=== PATIENT | male | born 1960 | race Caucasian/White ===

== ENCOUNTER 2024-02-12 13:08 | Outpatient (AMB) | payer MEDICAID, SELFPAY ==
--- NOTE | 2024-02-12 13:12 | MHC.OFFVIS ---
Intake Visit Reasons: elevated PSA Intake Note: New Patient is present for Elevated PSA Urology Med: Tadalafil Antibiotic Allergies: None Blood Thinner: None PSA: 07/19/23- 4.83 05/10/23- 6.0 03/08/23- 9.56 Family History: Bladder Cancer: No Prostate Cancer: Yes, patient reports his father had Elevated PSA, and prostate was removed Highway Traffic Control Technician Required: No Accompanied by: Self / Same As Patient Allergies No Known Allergies Allergy (Verified 02/12/24 13:15) HPI Comments Details: Chay is a pleasant male. He is a patient of . He is seen for the following urologic conditions - elevated PSA Discussion regarding options with elevated PSA On exam had AIDA consistent with mildly enlarged prostate and question of chronic prostatitis PSA has shown fall over past six-month previous high over 9 05/26 6.3, 10/23 4.6 Family history father with prostate cancer Discussed options including prostate biopsy, urine DNA test, 4K PSA score, prostate MRI - with potential plan for ultrasound fusion MRI biopsy He would like to try the urine DNA test He understands that there may well be potential for delay in diagnosis of prostate cancer if present but is willing to take this risk PFSH Medical History (Updated 02/12/24 @ 13:29 by Kahlil Bess MD) Elevated PSA Erectile dysfunction Surgical History History of colonoscopy Family History Father Prostate cancer Elevated PSA H/O radical prostatectomy Review of Systems Const Denies chills and Denies fever(s) Card Reports no additional complaints and Denies syncope Resp Denies cough GI Denies abdominal pain and Denies heartburn Reports as per HPI and Denies change in libido Neuro Denies syncope Psych Denies change in libido Endo Denies change in libido Physical Exam Const General: cooperative, healthy appearing, comfortable and no acute distress Orientation/consciousness: patient oriented x3 HEENT Face and sinus: Yes normal facial exam Mouth: moist mucous membranes Neck Neck: Yes normal visual inspection, Yes full ROM and Yes trachea midline Chest Chest palpation & inspection: normal inspection of the chest Resp Effort & Inspection: normal respiratory effort, able to speak in complete sentences and no respiratory distress GI Inspection: Yes normal to inspection Rectal Exam - Male: Yes normal sphincter tone and Yes prostate normal Male General Exam: Yes normal external exam Penis: normal penis and circumcised Meatus: meatus normal Scrotum: scrotum normal Testes: Testes normal Back/Spine/Pelvis Cervical Spine: normal cervical lordosis Thoracic/Lumbar Spine: thoracic and lumbar spine normal to inspection Skin General skin exam: no rashes or lesions noted Neuro General: patient oriented x3, gait normal, tone normal and moves all extremities Extrem General: Yes normal to inspection and Yes capillary refill normal Assessment & Plan Assessment & Plan (1) Elevated PSA: Code(s): R97.20 - Elevated prostate specific antigen [PSA] Category: Medical Plan Uro DX Three-month follow-up PSA tele Orders: Orders PSA,Total (Free>4and<10) 3 Months R97.20 - Elevated prostate specific antigen [PSA] Patient Instructions: Imaging studies, laboratory and physical exam results were discussed and reviewed in detail. No major barriers to patient understanding were identified. An opportunity to ask questions regarding the treatment plan was provided. All questions were answered. The patient expressed understanding and agreement with the above treatment plan. The patient is aware they should contact our office by phone for worsening of their current condition or the appearance of new urologic symptoms. Compliance is encouraged with any medications and followup testing that is ordered. It is a privilege to participate in the urologic care of your patient. If you have any questions or concerns regarding treatment for the above conditions, or other urologic issues, please do not hesitate to contact me. The office telephone contact is [phone]. This note is constructed using voice recognition software. While every effort has been made to ensure accuracy laser specialist errors may have been included. Yours sincerely, Dr Kahlil Bess MD, [facility] - Urology Providers of Expert, Compassionate Care for the Genitourinary System Coding Level of Care Code New Pt Level 4 (58578) Diagnoses Elevated PSA R97.20
== END 2024-02-12 13:46 | disposition home or self-care (01) ==
PROVIDERS: PCP Internal Medicine; Visit Provider Urology
DX: R97.20 Elevated prostate specific antigen [PSA] (principal)
CPT/HCPCS: 99204

== ENCOUNTER → 2024-02-12 13:08 | Outpatient (BNVA) | payer MEDICAID, SELFPAY | PROVIDERS: PCP Internal Medicine; Visit Provider Urology | DX: R97.20 Elevated prostate specific antigen [PSA] (principal) | CPT/HCPCS: 99202 ==

== ENCOUNTER 2024-05-26 08:20 | Outpatient (REF) | payer MEDICAID, SELFPAY ==
[2024-05-26 10:14] LABS: PSA,Total (Free>4and<10) 7.86 ng/mL (0.00-4.00)
[2024-05-28 12:04] LABS: Free Prostate Spec Ag 0.9 ng/mL; Percent Free Prostate Spec Ag 12 % (calc) (>25); Prostate Specific Ag Total 7.7 ng/mL (< OR = 4.0)
== END 2024-05-26 08:21 | disposition home or self-care (01) ==
LOC: HO.LAB 08:20
PROVIDERS: PCP Internal Medicine; Visit Provider Urology
DX: R97.20 Elevated prostate specific antigen [PSA] (principal)
CPT/HCPCS: 36415; 84153; 84154

== ENCOUNTER 2024-07-03 09:45 | Outpatient (AMB) | payer MEDICAID, SELFPAY ==
--- NOTE | 2024-07-03 09:46 | MHC.OFFVIS ---
Intake Visit Reasons: PSA follow up Intake Note: Patient is present for PSA Urology Medication:TADALAFIL Antibiotic Allergy:NONE Blood Thinner:NONE Dental Assistant Medical Assistant Required: No Allergies No Known Allergies Allergy (Verified 07/03/24 09:47) HPI Comments Details: Chay is a pleasant male. He is a patient of . He is seen for the following urologic conditions - elevated PSA Telemedicine Evaluation 15 min Consultation [employer] Kost[employer] Video Continued persistent rise in PSA. Recommend prostate biopsy Elevated PSA Probable chronic prostatitis PSA has shown fall over past six-month previous high over 9 05/26 6.3, 10/23 4.6, 05/27 7.7 12% Family history father with prostate cancer Uro DX - score 44 - 35% chance prostate cancer PFSH Medical History (Updated 02/12/24 @ 13:29 by Kahlil Bess MD) Elevated PSA Erectile dysfunction Surgical History History of colonoscopy Family History Father Prostate cancer Elevated PSA H/O radical prostatectomy Review of Systems Const All systems reviewed & are unremarkable except as noted in HPI and below Reports no additional complaints Resp Reports no additional complaints GI Reports no additional complaints Reports as per HPI Musc Reports no additional complaints Physical Exam Telemedicine evaluation Appropriate responses Regular breathing rate and rhythm HEENT Head: Yes normal to inspection Ears: hearing grossly normal bilaterally Eyes General: appearance normal, both eyes and all related structures Neck Neck: Yes normal visual inspection Chest Chest palpation & inspection: normal inspection of the chest Resp Effort & Inspection: normal respiratory effort and able to speak in complete sentences Telehealth Telehealth Telehealth Platform: [employer] Location of provider rendering services: practice address Location of patient: address on file Patient Identification confirmed using: Name, : Yes Telehealth method: video Patient verbally consented to treatment: Yes Patient verbally consented to billing insurance company: Yes Patient informed of any privacy concerns related to visit: Yes Minutes spent on Phone/Video with Pt.: 15 Assessment & Plan Assessment & Plan (1) Elevated PSA: Code(s): R97.20 - Elevated prostate specific antigen [PSA] Category: Medical Plan Recommend prostate biopsy Patient Instructions: This note is constructed using voice recognition software. While every effort has been made to ensure accuracy duplicating machine operator errors may have been included. Imaging studies, laboratory and physical exam results were discussed and reviewed in detail. No major barriers to patient understanding were identified. An opportunity to ask questions regarding the treatment plan was provided. All questions were answered. The patient expressed understanding and agreement with the above treatment plan. The patient is aware they should contact our office by phone for worsening of their current condition or the appearance of new urologic symptoms. Compliance is encouraged with any medications and followup testing that is ordered. It is a privilege to participate in the urologic care of your patient. If you have any questions or concerns regarding treatment for the above conditions, or other urologic issues, please do not hesitate to contact me. The office telephone contact is [phone]. Sincerely, Dr Kahlil Bess MD, [facility] - Urology Compassionate Specialist Care for the Genitourinary System Coding Level of Care Code Tele Est Pt Level 4 (04493) Diagnoses Elevated PSA R97.20
== END 2024-07-03 10:56 | disposition home or self-care (01) ==
LOC: HO.HUSH 09:45
PROVIDERS: PCP Internal Medicine; Visit Provider Urology
DX: R97.20 Elevated prostate specific antigen [PSA] (principal)
CPT/HCPCS: 99214

== ENCOUNTER → 2024-07-03 09:45 | Outpatient (BNVA) | payer MEDICAID, SELFPAY | PROVIDERS: PCP Internal Medicine; Visit Provider Urology ==

== ENCOUNTER 2024-08-21 07:58 | Outpatient (REF) | payer MEDICARE, SELFPAY ==
[2024-08-21] MEDS: Lidocaine HCl 1 % MPF 5 ML VIAL 15 ML SUBCUT (08:44)
--- NOTE | 2024-08-21 08:48 | P.OP_ITS ---
Operative Note Operative Note Date of Service: 08/21/24 Narrative: Preoperative diagnosis: Elevated PSA Postoperative diagnosis: Elevated PSA Procedure: 1. transrectal ultrasound measurement of prostate 2. transrectal ultrasound-guided pudendal nerve block 3. transrectal ultrasound-guided prostate biopsy 12 core Surgeon: Dr. Kahlil Bess Anesthetic: 10cc 1% lidocaine Indications for procedure: Elevated PSA Counselling: Technical aspects, risks and benefits of proposed procedure were discussed in full. All questions have been answered, written consent has been obtained and patient agrees to proceed. Procedure: The patient was brought into the procedure area and placed in a left lateral decubitus position. Patient identity confirmed. Perioperative antibiotics confirmed. Safety pause time out performed. AIDA was performed to dilate rectal sphincter Iodine 10cc with 60 cc gel was placed per rectum to reduce infection risk using a catheter tip syringe. 8 Hz Kylah rectal end-fire ultrasound probe was placed transrectally without difficulty. The prostate was visualized. Seminal vesicles were normal. Prostate margins were clearly demarcated. Bladder was seen superiorly. No cystic structures were noted No calcifications were noted at the surgical margin The prostate was otherwise heterogenous in nature. Ratio of transition zone to peripheral zone favored peripheral zone. There did appear to be a discrete small whorl on the patient's right side and this was targeted as part of biopsy process. The prostate was measured in 3 dimensions Prostatic Width: 5.3 cm Prostatic Height: 3.6 cm Urethral Length: 3.8 cm Total volume equals : 40 ml An ultrasound-guided pudendal nerve block was performed using a 22 gauge spinal needle in the sagittal plane. 4 cc of 1% lidocaine placed at the junction of each seminal vesicle and 2 cc placed at the apex of the prostate. A 12 core biopsy was performed with 6 cores each side using an 18 gauge prostate biopsy gun. Two cores each were taken at the prostate apex, mid and base on each side. Cores were spaced between lateral and medial aspects. Each core was examined as placed on specimen foam as part of supervisor quality control to ensure a minimum 1 cm of length and minimal discontinuity. He tolerated the procedure well with minimal rectal bleeding. Blood pressure remained stable following procedure. He was able to ambulate to bathroom after 5 minutes. Printed instructions regarding antibiotic use and common adverse events from the procedure such as low-grade temperature, potential infection and bleeding were given. He understands to call the office or go to an emergency room should any of these events arise. Pathology: 12 core prostate biopsy. CPT code 75791: Transrectal ultrasound; this is a diagnostic test for evaluation of the prostate and surrounding structures, looking for abnormalities or suspicious areas worrisome for cancer CPT code 76182: Biopsy, prostate; needle or punch, single or multiple, any approach CPT code 16362: Ultrasonic guidance for needle placement (eg, biopsy, aspiration, injection, localization device), imaging supervision and interpretation
== END 2024-08-21 07:59 | disposition home or self-care (01) ==
LOC: HO.US 07:58
PROVIDERS: PCP Internal Medicine; Visit Provider Urology
DX: R97.20 Elevated prostate specific antigen [PSA] (principal)
CPT/HCPCS: 55700; 76942; 88305; J2003

== ENCOUNTER → 2024-08-21 07:58 | Outpatient (BNV) | payer MEDICARE, SELFPAY | PROVIDERS: PCP Internal Medicine; Visit Provider Urology | DX: R97.20 Elevated prostate specific antigen [PSA] (principal) | CPT/HCPCS: 55700; 76872; 76942 ==

== ENCOUNTER 2024-09-03 08:36 | Outpatient (AMB) | payer MEDICARE, SELFPAY ==
--- NOTE | 2024-09-03 08:36 | MHC.OFFVIS ---
Intake Visit Reasons: Prostate biopsy results Intake Note: Patient is present for PROSTATE BIOPSY RESULTS Urology Medication:TADALAFIL Antibiotic Allergy:NONE Blood Thinner:NONE Coding Machine Operator Required: No Allergies No Known Allergies Allergy (Verified 09/03/24 08:37) HPI Comments Details: Chay is a pleasant male. He is a patient of . He is seen for the following urologic conditions - prostate cancer Telemedicine Evaluation 15 min Consultation [employer] Kostas Video Discussed biopsy - well tolerated minimal discomfort Discussed biopsy result Low volume, high-grade prostate cancer likely localized Plan PET-CT with prostate MRI Follow-up office for discussion of results and intervention planning 4 weeks Prostate cancer - grade group 4/5 05/26 6.3, 10/23 4.6, 05/27 7.7 12% Family history father with prostate cancer - 80 yr Uro DX - score 44 - 35% chance prostate cancer Histologic type: Acinar adenocarcinoma Histologic grade: - or right side Antonio score: 4+4=8 (I, K), 4+5=9 (J, L) - % of pattern 4: 100% (I and K); 70% (J); 60% (L) % of pattern 5: 30% (J); 40% (L) RML 33%, RMM 46%, RAL 45%, BENNY 50% Tumor quantitation: Number cores positive: 4 Total number of cores: 12 Periprostatic fat inv.: Not identified Seminal vesicle inv.: Not identified Perineural inv.: Present LVI: Not identified [facility] Medical History (Updated 09/03/24 @ 08:59 by Kahlil Bess MD) Elevated PSA Erectile dysfunction Surgical History History of colonoscopy Family History Father Prostate cancer Elevated PSA H/O radical prostatectomy Review of Systems Const All systems reviewed & are unremarkable except as noted in HPI and below Reports no additional complaints Resp Reports no additional complaints GI Reports no additional complaints Reports as per HPI Musc Reports no additional complaints Physical Exam Telemedicine evaluation Appropriate responses Regular breathing rate and rhythm HEENT Head: Yes normal to inspection Ears: hearing grossly normal bilaterally Eyes General: appearance normal, both eyes and all related structures Neck Neck: Yes normal visual inspection Chest Chest palpation & inspection: normal inspection of the chest Resp Effort & Inspection: normal respiratory effort and able to speak in complete sentences Telehealth Telehealth Location of provider rendering services: practice address Location of patient: address on file Patient Identification confirmed using: Name, : Yes Telehealth method: voice only Patient verbally consented to treatment: Yes Patient verbally consented to billing insurance company: Yes Patient informed of any privacy concerns related to visit: Yes Assessment & Plan Assessment & Plan (1) Hormone sensitive prostate cancer: Code(s): C61 - Malignant neoplasm of prostate; Z19.1 - Hormone sensitive malignancy status Category: Medical Plan Complete staging Orders: Orders MR Prostate wo/w con 2 Weeks C61 - Malignant neoplasm of prostate, Z19.1 - Hormone sensitive malignancy status PET CT fusion skull to thigh Today C61 - Malignant neoplasm of prostate Patient Instructions: This note is constructed using voice recognition software. While every effort has been made to ensure accuracy stretcher leveler operator errors may have been included. Imaging studies, laboratory and physical exam results were discussed and reviewed in detail. No major barriers to patient understanding were identified. An opportunity to ask questions regarding the treatment plan was provided. All questions were answered. The patient expressed understanding and agreement with the above treatment plan. The patient is aware they should contact our office by phone for worsening of their current condition or the appearance of new urologic symptoms. Compliance is encouraged with any medications and followup testing that is ordered. It is a privilege to participate in the urologic care of your patient. If you have any questions or concerns regarding treatment for the above conditions, or other urologic issues, please do not hesitate to contact me. The office telephone contact is [phone]. Sincerely, Dr Kahlil Bess MD, [facility] - Urology Compassionate Specialist Care for the Genitourinary System Coding Level of Care Code Tele Est Pt Level 4 (29879) Diagnoses Hormone sensitive prostate cancer C61; Z19.1
== END 2024-09-03 09:06 | disposition home or self-care (01) ==
LOC: HO.HUSH 08:36
PROVIDERS: PCP Internal Medicine; Visit Provider Urology
DX: C61 Malignant neoplasm of prostate (principal); Z19.1 Hormone sensitive malignancy status
CPT/HCPCS: 99214

== ENCOUNTER → 2024-09-03 08:36 | Outpatient (BNVA) | payer MEDICARE, SELFPAY | PROVIDERS: PCP Internal Medicine; Visit Provider Urology | DX: Z13.89 Encounter for screening for other disorder (principal) ==

== ENCOUNTER → 2024-09-18 08:49 | Outpatient (BNV) | payer MEDICARE, OTHER, SELFPAY | PROVIDERS: Visit Provider Radiology Diagnostic Radiology | DX: R97.20 Elevated prostate specific antigen [PSA] (principal) | CPT/HCPCS: 72197 ==

== ENCOUNTER 2024-09-18 08:55 | Outpatient (REF) | payer MEDICARE, OTHER, SELFPAY ==
--- NOTE | ~2024-09-18 | MR_ITS ---
EXAMINATION: MRI prostate without and with contrast. HISTORY: Elevated PSA TECHNIQUE: 1.5T body coil survey of the pelvis was performed. Phase array coil imaging of the prostate was performed in multiplanar high resolution axial, coronal, sagittal fast spin echo T2 and axial T1 weighted imaging sequences. Axial diffusion imaging at intermediate and high field performed with ADC mapping. Next, 8 mL Gadavist was given by intravenous infusion, and dynamic axial imaging performed. COMPARISON: There are no prior studies for comparison. CLINICAL DATA: Most recent PSA: 7.7ng/mL PSA Density: 0.07ng/mL squared Prostate Biopsy: 2 weeks ago. Positive cancer. FINDINGS: Prostate size: 3.8 x 5.0 x 2.7cm. Calculated prostate volume is 98 mL. T1: Peripheral zone: Increased signal in the bilateral peripheral zone slightly more on the left. Suggestive of hemorrhage likely from recent biopsy. Transitional Zone: Heterogeneous but no focal increased T1 signal. T2: Increased T2 signal bilateral peripheral zone and slightly heterogenous T2 signal with corresponding increased T2 signal in the left peripheral zone on ADC map. There is hemorrhage in the left peripheral zone on T1. Nonspecific heterogenous signal in the transitional zone as well PI-RADS: 1 Diffusion: Increased bilateral diffusion peripheral zone and bilateral transition zone. PI-RADS: 1 DEI: No enhancement seen in the peripheral zone. Nonspecific mild enhancement in bilateral transitional and bilateral peripheral zones PI-RADS: 1. Seminal Vesicles/Ejaculatory Ducts: Symmetric and normal in signal and caliber. Pelvic Lymph Nodes: No obturator or internal iliac lymph nodes meeting size criteria for adenopathy. Marrow Signal: Normal marrow signal and enhancement without focal lesion identified. MR/MR Prostate wo/w con IMPRESSION: No discrete or focal lesion seen in the peripheral zone. There is hemorrhage visualized in left and minimal in right peripheral zone. PI-RADS 1: Very low (clinically significant cancer is highly unlikely to be present) PI-RADS Assessment Categories PI-RADS 1: Very low (clinically significant cancer is highly unlikely to be present) PI-RADS 2: Low (clinically significant cancer is unlikely to be present) PI-RADS 3: Intermediate (the presence of clinically significant cancer is equivocal) PI-RADS 4: High (clinically significant cancer is likely to be present) PI-RADS 5: Very high (clinically significant cancer is highly likely to be present) [employer]. MR Prostate Imaging Reporting and Data System version 2.1. [email or web address] Electronically signed by: Servando Arana MD 09/25/2024 07:37 AM EDT
[2024-09-18] MEDS: gadobutroL 10 ML VIAL IVPUSH (10:40)
== END 2024-09-18 08:56 | disposition home or self-care (01) ==
LOC: HO.MRI 08:55
PROVIDERS: Visit Provider Urology
DX: C61 Malignant neoplasm of prostate (principal); Z19.1 Hormone sensitive malignancy status
CPT/HCPCS: 72197; A9585

== ENCOUNTER → 2024-10-10 15:11 | Outpatient (AMB) | payer MEDICARE, OTHER, SELFPAY ==
--- NOTE | 2024-10-10 15:20 | MHC.OFFVIS ---
Intake Visit Reasons: MRI/PET CT f/u Intake Note: Patient is present for pPca Urology Medication:TADALAFIL Antibiotic Allergy:NONE Blood Thinner:NONE Imaging done : 10/02/24 Hydroelectric Machinery Mechanic Helper Required: No Accompanied by: Self / Same As Patient Allergies No Known Allergies Allergy (Verified 10/10/24 15:22) [facility] Medical History (Updated 09/03/24 @ 08:59 by Kahlil Bess MD) Elevated PSA Erectile dysfunction Surgical History History of colonoscopy Family History Father Prostate cancer Elevated PSA H/O radical prostatectomy Coding
== END ==
LOC: HO.HUSH 15:12
PROVIDERS: PCP Internal Medicine; Visit Provider Urology
DX: Z13.9 Encounter for screening, unspecified (principal)

== ENCOUNTER → 2024-10-10 15:11 | Outpatient (BNVA) | payer MEDICARE, OTHER, SELFPAY | PROVIDERS: PCP Internal Medicine; Visit Provider Urology | DX: C61 Malignant neoplasm of prostate (principal); Z19.1 Hormone sensitive malignancy status | CPT/HCPCS: 81003; 99212 ==

== ENCOUNTER 2024-11-07 14:52 | Outpatient (AMB) | payer MEDICARE, OTHER, SELFPAY ==
--- NOTE | 2024-11-07 14:53 | AM.OFFVISNUR ---
Intake Visit Reasons: GnRH Allergies No Known Allergies Allergy (Verified 10/10/24 15:22) Office Meds Eligard (6 month) 45 mg (6 month) subcutaneous syringe Performing Provider: Kahlil Bess MD [place] [facility] Administered by: Javid Hdez LPN on 11/07/24 14:53 Dose Route Admin Location Dispensed Lot Number Expiration Date [facility] Machine Former 45 mg subcut right arm 45 mg [id number] 12/01/25 04159-606-29 Asseta. Total Dispensed Waste 45 mg 0 % Assessment & Plan Assessment & Plan Orders: Orders AMB Leuprolide Injection - Practice Supplied Today C61 - Malignant neoplasm of prostate, Z19.1 - Hormone sensitive malignancy status Coding
== END 2024-11-07 15:03 | disposition home or self-care (01) ==
PROVIDERS: PCP Internal Medicine; Visit Provider Urology
DX: C61 Malignant neoplasm of prostate (principal); Z19.1 Hormone sensitive malignancy status

== ENCOUNTER → 2024-11-07 14:52 | Outpatient (BNVA) | payer MEDICARE, SELFPAY | PROVIDERS: PCP Internal Medicine; Visit Provider Urology | DX: Z51.11 Encounter for antineoplastic chemotherapy (principal); C61 Malignant neoplasm of prostate; Z19.1 Hormone sensitive malignancy status; Z79.818 Long term (current) use of other agents affecting estrogen receptors and estrogen levels | CPT/HCPCS: 96402; J9217 ==

== ENCOUNTER 2024-12-17 09:56 | Day surgery (SDC) | payer MEDICARE, OTHER, SELFPAY ==
--- OUTSIDE RECORDS SUMMARY | 2024-12-05 12:49 | XMS_ITS | Encounter Summary ---
Author Organization [facility] Address [address] [place] [address] Care Team Providers Care Watch Commander Name Role Phone Unavailable Primary Care Provider Unavailabl e Encounter Details Date Type Department Care Team (Late st Contact Info) Description 12/03/2024 Telephone Hematology and Oncology - [address] [phone] Lavon Oliva MD [address] [place] [address] [phone] Social History Tobacco Use Types Packs/Day Years Used Date Smoking Tobacco: Never Assessed Sex and Gender Information Value Date Recorded Sex Assigned at Not on file Legal Sex Male 12:03 PM EDT Gender Identity Not on file Sexual Orientation Not on file documented as of this encounter Plan of Treatment Upcoming Encounters Date Type Department Care Team (Late st Contact Info) Description 12/30/2024 9:30 AM EDT Appointment Radiation Oncology - [address] [phone] Alfredo Todd MD [address] [place] [address] [phone] documented as of this encounter Visit Diagnoses Not on filedocumented in this encounter
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
--- OUTSIDE RECORDS SUMMARY | 2024-12-05 12:49 | XMS_ITS ---
Author Name [facility] Organization Unknown Problems Problem Status Onset Date Problem Type Date of Resoluti on Source Prostate cancer ([facility] V24, [facility] V28) active 2024-11-18 [address] [id number]
--- OUTSIDE RECORDS SUMMARY | 2024-12-05 12:49 | XMS_ITS | Clinical Summary ---
Author Organization [facility] Address [address] [place], [place] [phone] Phone Care Team Providers Care Route Sales Representative Name Role Phone Unavailable Primary Care Provider Unavailabl e Active Problems Problem Noted Date Diagnosed Date Prostate cancer (CMS/[facility] V24, CMS/[facility] V28) 11/18 Cancer Staging:Clinical stage from 11/18/2024:Stage IIIC(cT1c, cN0, cM0, PSA: 7.7, Grade Group: 5) - Signed by Alfredo Todd MD on 11/18/2024 Encounters Date Type Department Care Team Description 12/03/2024 Telephone Hematology and Oncology - [address] [phone] Lavon Oliva MD 11/21/2024 Telephone Hematology and Oncology [address] [phone] Luz Mitchell from Last 3 Months Social History Tobacco Use Types Packs/Day Years Used Date Smoking Tobacco: Never Assessed Sex and Gender Information Value Date Recorded Sex Assigned at Not on file Legal Sex Male 12:03 PM EDT Gender Identity Not on file Sexual Orientation Not on file Plan of Treatment Upcoming Encounters Date Type Department Care Team (Late st Contact Info) Description 12/30/2024 9:30 AM EDT Appointment Radiation Oncology - [address] [phone] Alfredo Todd MD [address] [place] [phone] Health Maintenance Due Date Last Done Comments COVID-19 Vaccine (#1) 1964 DTaP,Tdap,and Td Vaccines (1 - Tdap) 1978 Pneumococcal Vaccine: 50+ Ye ars (1 of 2 - PCV) 1978 Zoster Vaccines (1 of 2) 1978 RSV Immunization Adult Patie nts (1 - Risk 60-74 years 1-dose series) 2019 Depression Screening 04/02/2024 Abdominal Aortic Aneurysm (A AA) Screen 11/18/2024 Cholesterol Screening (Lipid Panel) 11/18/2024 Colorectal Cancer Screening: Colonoscopy 11/18/2024 Falls Risk Assessment 11/18/2024 Hepatitis C Screening 11/18/2024 Medicare Annual Wellness Visit 11/18/2024 Social Influencers of Health Screening 11/18/2024 Influenza Vaccine (#1) 2024 HIB Vaccines Aged Out No longer eligi ble based on patient's age to complete this topic HPV Vaccines Aged Out No longer eligi ble based on patient's age to complete this topic Hepatitis A Vaccines Aged Out No long er eligible based on patient's age to complete this topic Hepatitis B Vaccines Aged Out No long er eligible based on patient's age to complete this topic IPV Vaccines Aged Out No longer eligi ble based on patient's age to complete this topic MMR Vaccines Aged Out No longer eligi ble based on patient's age to complete this topic Meningococcal ACWY Vaccine Aged Out N o longer eligible based on patient's age to complete this topic Meningococcal B Vaccine Aged Out No l onger eligible based on patient's age to complete this topic RSV Immunization Patients Un alona 20 months Aged Out No longer eligible b ased on patient's age to complete this topic Varicella Vaccines Aged Out No longer eligible based on patient's age to complete this topic Insurance MEDICARE [facility]
--- NOTE | 2024-12-16 10:00 | P.CONAN_ITS ---
Documented by User: Dia Black NP 12/16/24 10:00 HPI - Anesthesia Eval Consult details Narrative: 64yo M for Space OAR with Visacoil PMFSH Active Problems Active Problems: All Active Problems Hormone sensitive prostate cancer (Acute) Elevated PSA (Acute) Past Medical History Medical History Hormone sensitive prostate cancer Elevated PSA Erectile dysfunction Family History Family History Father Prostate cancer Elevated PSA H/O radical prostatectomy Surgical History Surgical History Hx of prostate biopsy History of colonoscopy Social History Social History Are you a primary acute care physical therapist to a significant other at home: No Do you presently have visiting nurse or other home services: No Patient Tobacco Use Status: Former Tobacco user Use of substances other than those prescribed or required for medical reasons: No Have you been hit, kicked, punched, or otherwise hurt by someone within the past year? If so, by whom?: No Are you DNR?: No Advance Directives: No Advance Directives Information Provided: Yes Poor oral hygiene: No Meds Allergies Allergy/AdvReac Type Severity Reaction Status Date / Time No Known Allergies Allergy Verified 12/17/24 10:24 Home Medications ?Medication ?Instructions ?Recorded ?Confirmed ?Last Taken ?Type sildenafil 100 mg tablet 100 mg PO DAILY PRN Erectile 12/15/24 12/15/24 Unknown History Dysfunction Exam Height,Weight and Vital Signs: Height 5 ft 7.72 in Assessment and Plan Assessment Anesthesia Assessment: Chart Reviewed Documented by User: Beth Lou MD 12/17/24 11:04 PMFSH Past Medical History Medical History Hormone sensitive prostate cancer Elevated PSA Erectile dysfunction Family History Family History Father Prostate cancer Elevated PSA H/O radical prostatectomy Family history of problems with anesthesia: No Surgical History Surgical History Hx of prostate biopsy History of colonoscopy History of Problems with Anesthesia: No Social History Social History Are you a primary acute care physical therapist to a significant other at home: No Do you presently have visiting nurse or other home services: No Patient Tobacco Use Status: Former Tobacco user Use of substances other than those prescribed or required for medical reasons: No Have you been hit, kicked, punched, or otherwise hurt by someone within the past year? If so, by whom?: No Are you DNR?: No Advance Directives: No Advance Directives Information Provided: Yes Poor oral hygiene: No Meds Allergies Allergy/AdvReac Type Severity Reaction Status Date / Time No Known Allergies Allergy Verified 12/17/24 10:24 Home Medications ?Medication ?Instructions ?Recorded ?Confirmed ?Last Taken ?Type sildenafil 100 mg tablet 100 mg PO DAILY PRN Erectile 12/15/24 12/15/24 Unknown History Dysfunction Exam Airway Mallampati Class: II TM Dist: >3cm Neck ROM: Limited Heart: rrr Lungs: cta Assessment and Plan Assessment Anesthesia Assessment: Anesthesia Plan Discussed Final Anesthetic Review Family History of Problems with Anesthesia: No History of Problems with Anesthesia: No NPO: Yes ASA Class: II Final Preanesthetic Review: No Changes in Pt Med Stat, Meds/Allgs Chart Reviewed, Consent Obtained/Reviewed and Anes Risks/Benef Reviewed Patient Risk: Intermediate Procedure Risk: Low Anesthetic Plan Anesthetic Plan: GA and MAC: Disposition: Standard PACU
[2024-12-17] MEDS: Lactated Ringers 1,000 ML 100 ML IVCONT (10:05)
[2024-12-17] MEDS: Opium/Belladonna 60/16.2 mg SUPP.RECT 1 SUPP PR (10:05)
[2024-12-17 10:25] VITALS: BP 132/77; PULSE 62; RESP 14; TEMP 37; O2SAT 97; BMI 25.1
--- NOTE | 2024-12-17 11:06 | MHC.SHP ---
Pre-Procedural Eval Section A - 24 Hr Update-Section A only Date of Service: 12/17/24 The patient is an INPATIENT: No Changes since office visit: No Cold of Flu in the past 2 weeks, No New Medical Problems, No Changes in Medication and No Patient answered all questions The patient has been examined within 24 hours of the surgical procedure. The History & Physical has been completed within 30 days and I have reviewed it.: Yes Section B - Complete if H&P > 30 days Chief Complaint: Malignant neoplasm of prostate Details of Present Illness: spaceoar with markers Allergies: Allergies Allergy/AdvReac Type Severity Reaction Status Date / Time No Known Allergies Allergy Verified 12/17/24 10:24 Plan I have reviewed the history and physical and performed a pertinent physical examination on my patient. No changes have occurred unless specified. Time Spent With Patient Time: Total time managing care of this patient today ____ minutes.
[2024-12-17 11:45] VITALS: BP 154/85; PULSE 60; RESP 12; TEMP 36.1; O2SAT 97
[2024-12-17 11:50] VITALS: BP 143/86; PULSE 60; RESP 12; O2SAT 95
[2024-12-17 11:55] VITALS: BP 144/82; PULSE 69; RESP 12; O2SAT 95
[2024-12-17 12:00] VITALS: BP 141/82; PULSE 66; RESP 12; O2SAT 95
[2024-12-17 12:07] VITALS: BP 136/83; PULSE 65; RESP 14; TEMP 36.1; O2SAT 97
--- NOTE | 2024-12-17 12:48 | W.PM.OPN ---
Operative Note Operative Note Date of Service: 12/17/24 Narrative: Preoperative diagnosis: Prostate cancer Postoperative diagnosis: Prostate cancer Procedure: 1. Transrectal ultrasound-guided perineal visicoil marker seed placement 2. Transrectal ultrasound-guided perineal SpaceOAR gel placement Surgeon: Dr. Kahlil Bess Anesthetic: Sedation Indications for procedure: Prostate Cancer Procedure: After informed consent was verified, the patient was brought into the operating room and anesthesia was performed per protocol. The patient was placed in a modified dorsal lithotomy position. Anus was dilated with a finger. Gel was placed per rectum. Ultrasound probe was placed per rectum. The prostate was visualized in sagittal and transverse dimensions. Local anesthetic was infiltrated in the perineal area using 10 cc of lidocaine Visicoil seed markers were placed in a transperineal fashion using ultrasound guidance 1 on the right toward mid gland. 1 on the left at mid gland. Good deployment confirmed with ultrasound. The purpose is for target triangulation. The 2nd part of the procedure was placement of SpaceOAR gel to allow consolidation for radiation delivery. The kit was prepared on the backtable with assembly of the 2 part solution and syringe delivery system per kit instructions. The delivery needle was advanced bevel down in the midline under ultrasound guidance to the apex of the prostate. It was advanced in the plane the prostate from the rectum to the midpoint of the prostate. Location was reviewed using sagittal and transverse imaging. At the midpoint of the prostate 1 cc of saline was placed to confirm needle position. Further injection saline was placed to confirm spread toward the base of the prostate. Position was confirmed with sagittal and transverse imaging. The needle was confirmed to be free from tenting of the rectum. With the needle in the confirmed position 10 cc of gel mixture was injected. This was performed over a target time of 15-20 seconds to allow for adequate spread.. Good separation was seen of the rectum from the prostate space running in the midline from the base toward the apex of the prostate. Following completion of the procedure the probe was removed from the rectum. He tolerated the procedure well. He was extubated in the operating room and transferred in stable condition to the recovery area. Pathology none Drains none
== END 2024-12-17 13:02 | disposition home or self-care (01) ==
PROVIDERS: Visit Provider Urology
PROC: (CPT 55874; principal; 2024-12-17 11:00)
DX: C61 Malignant neoplasm of prostate (principal); Z19.1 Hormone sensitive malignancy status; Z80.42 Family history of malignant neoplasm of prostate; N52.9 Male erectile dysfunction, unspecified; R97.20 Elevated prostate specific antigen [PSA]; Z79.899 Other long term (current) drug therapy
CPT/HCPCS: 55874; 55876; A4648; J0131; J1100; J1885; J2003; J2250; J2405; J2704; J2795; J3010

== ENCOUNTER → 2024-12-17 09:56 | Outpatient (BNV) | payer MEDICARE, OTHER, SELFPAY | PROVIDERS: Visit Provider Urology | DX: C61 Malignant neoplasm of prostate (principal) | CPT/HCPCS: 55874; 55876 ==

== ENCOUNTER 2025-03-17 14:02 | Outpatient (AMB) | payer MEDICARE, SELFPAY ==
--- NOTE | 2025-03-17 14:15 | A.OFFVIS_ITS ---
Intake Visit Reasons: Prostae cancer, Space OAR follow up SET NO UA Intake Note: Patient is present for Post Op Urology Medication:Sildenafil Antibiotic Allergy:NONE Blood Thinner:NONE Imaging done : 10/02/24 Procedure:12/17/24 Manager Employee Relations Required: No Accompanied by: Self / Same As Patient Allergies No Known Allergies Allergy (Verified 03/17/25 14:16) HPI Comments Details: Chay is a pleasant male. He is a patient of . He is seen for the following urologic conditions - prostate cancer Follow-up after CyberKnife therapy Good response. Had some urinary urgency responded to Flomax. Has now come off Three-month follow-up [facility] lab work Prostate cancer - grade group 4/5 SpaceOAR placement 12/25 01/24 CyberKnife therapy 5 fraction 725 per fraction [address] Peyton Rawls [facility] 11/24 05/26 6.3, 10/23 4.6, 05/27 7.7 12% Prostate MRI - 100 g prostate. No discrete lesions seen within prostate. Neg ative bone marrow signal. Negative nodes PET-CT - strongly avid prostate, negative nodes Family history father with prostate cancer - 80 yr Uro DX - score 44 - 35% chance prostate cancer Histologic type: Acinar adenocarcinoma Histologic grade: - or right side York score: 4+4=8 (I, K), 4+5=9 (J, L) - % of pattern 4: 100% (I and K); 70% (J); 60% (L) % of pattern 5: 30% (J); 40% (L) RML 33%, RMM 46%, RAL 45%, BENNY 50% Tumor quantitation: Number cores positive: 4 Total number of cores: 12 Periprostatic fat inv.: Not identified Seminal vesicle inv.: Not identified Perineural inv.: Present LVI: Not identified PFSH Medical History Hormone sensitive prostate cancer Elevated PSA Erectile dysfunction Surgical History Hx of prostate biopsy History of colonoscopy Family History Father Prostate cancer Elevated PSA H/O radical prostatectomy Social History Are you a primary home care companion to a significant other at home: No Do you presently have visiting nurse or other home services: No Patient Tobacco Use Status: Former Tobacco user Review of Systems Const Denies chills and Denies fever(s) Card Reports no additional complaints and Denies syncope Resp Denies cough GI Denies abdominal pain and Denies heartburn Reports as per HPI and Denies change in libido Neuro Denies syncope Psych Denies change in libido Endo Denies change in libido Physical Exam Const General: cooperative, healthy appearing, comfortable and no acute distress Orientation/consciousness: patient oriented x3 HEENT Face and sinus: Yes normal facial exam Mouth: moist mucous membranes Neck Neck: Yes normal visual inspection, Yes full ROM and Yes trachea midline Chest Chest palpation & inspection: normal inspection of the chest Resp Effort & Inspection: normal respiratory effort, able to speak in complete sentences and no respiratory distress GI Inspection: Yes normal to inspection Back/Spine/Pelvis Cervical Spine: normal cervical lordosis Thoracic/Lumbar Spine: thoracic and lumbar spine normal to inspection Skin General skin exam: no rashes or lesions noted Neuro General: patient oriented x3, gait normal, tone normal and moves all extremities Extrem General: Yes normal to inspection and Yes capillary refill normal Assessment & Plan Assessment & Plan (1) Hormone sensitive prostate cancer: Code(s): C61 - Malignant neoplasm of prostate; Z19.1 - Hormone sensitive malignancy status Category: Medical Plan Three-month follow-up lab work, [facility] Orders: Orders Testosterone, Total 3 Months C61 - Malignant neoplasm of prostate, Z19.1 - Hormone sensitive malignancy status Prostate Specific Antigen 3 Months C61 - Malignant neoplasm of prostate, Z19.1 - Hormone sensitive malignancy status Patient Instructions: This note is constructed using voice recognition software. While every effort has been made to ensure accuracy patrol community service officer errors may have been included. Imaging studies, laboratory and physical exam results were discussed and reviewed in detail. No major barriers to patient understanding were identified. An opportunity to ask questions regarding the treatment plan was provided. All questions were answered. The patient expressed understanding and agreement with the above treatment plan. The patient is aware they should contact our office by phone for worsening of th eir current condition or the appearance of new urologic symptoms. Compliance is encouraged with any medications and followup testing that is ordered. It is a privilege to participate in the urologic care of your patient. If you have any questions or concerns regarding treatment for the above conditions, or other urologic issues, please do not hesitate to contact me. The office telephone contact is [phone]. Sincerely, Dr Kahlil Bess MD, [facility] - Urology Compassionate Specialist Care for the Genitourinary System Coding Level of Care Code Est Pt Level 3 (35781) Add On Problem Visit Only Diagnoses Hormone sensitive prostate cancer C61; Z19.1
--- OUTSIDE RECORDS SUMMARY | 2025-03-17 18:18 | XMS_ITS ---
Author Organization [facility] Address [address] [place] [id number] Phone Care Team Providers Care Sliver Lap Tender Name Role Phone Gasper Hensley MD Primary Care Provider [phone] Active Problems Problem Noted Date Diagnosed Date Prostate cancer 11/18/2024 Cancer Staging:Clinical stage from 11/18/2024:Stage IIIC(cT1c, cN0, cM0, PSA: 7.7, Grade Group: 5) - Signed by Alfredo Todd MD on 11/18/2024 Current Treatment and Therapy Plans No current plan information found. Past Treatment and Therapy Plans No past plan information found. Current Radiation Episodes * Radiation Therapy: ProstateOverview* First Treatment Date Latest Treatment Date Treatment Site Technique Goal Episode Provider 01/16/2025 01/26/2025 Prostate Curative * Linked Problems Treatment Courses* Course 1 01/16/2025 - 01/26/2025 Treatment Sites Treatment Period Fraction Dose Fractions Total Dose Prostate PTV 01/16/2025 - 01/26/2025 725 / 725 cGy 5 / 5 3,625 / 3,625 cGy
--- OUTSIDE RECORDS SUMMARY | 2025-03-17 18:18 | XMS_ITS | Clinical Summary ---
Author Organization [facility] Address [address] [place] [phone] Phone Care Team Providers Care Automatic Typewriter Inspector Name Role Phone Gasper Hensley MD Primary Care Provider [phone] Allergies No known active allergies Medications tamsulosin (FLOMAX) 0.4 mg 24 hr capsule Take 1 capsule (0.4 mg total) by mouth 1 (one) time each day with breakfast. Capsules should be taken 30 minutes following the same meal each day. 30 each 2 Active Active Problems Problem Noted Date Diagnosed Date Prostate cancer 11/18/2024 Cancer Staging:Clinical stage from 11/18/2024:Stage IIIC(cT1c, cN0, cM0, PSA: 7.7, Grade Group: 5) - Signed by Alfredo Todd MD on 11/18/2024 Encounters Date Type Department Care Team Description 02/10/2025 Telephone Radiation Oncology - [address] [phone] Alfredo Todd MD 01/26/2025 10:00 AM EDT - 01/26/2025 11:59 PM EDT Hospital Encounter Cyberknife - [address] [address] Prostate cancer ([facility] V24, [facility] V28) Discharge Disposition: Home or Self Care 01/23/2025 1:01 PM EDT - 01/23/2025 11:59 PM EDT Hospital Encounter Radiation Oncology - [address] [address] Alfredo Todd MD Prostate cancer ([facility] V24, [facility] V28) (Primary Dx) Discharge Disposition: Home or Self Care 01/23/2025 1:00 PM EDT - 01/23/2025 11:59 PM EDT Hospital Encounter [address] [phone] Discharge Disposition: Home or Self Care 01/21/2025 1:00 PM EDT - 01/21/2025 11:59 PM EDT Hospital Encounter [address] [phone] Discharge Disposition: Home or Self Care 01/19/2025 12:58 PM EDT - 01/19/2025 11:59 PM EDT Hospital Encounter [address] [phone] Discharge Disposition: Home or Self Care 01/16/2025 1:50 PM EDT - 01/16/2025 11:59 PM EDT Hospital Encounter [address] [phone] Discharge Disposition: Home or Self Care 01/06/2025 4:15 PM EDT - 01/06/2025 11:59 PM EDT Hospital Encounter Radiation [address] [phone] Discharge Disposition: Home or Self Care 12/31/2024 2:00 PM EDT - 12/31/2024 11:59 PM EDT Hospital Encounter Radiation [address] [phone] Alfredo Todd MD Prostate cancer ([facility] V24, [facility] V28) Discharge Disposition: Home or Self Care 12/31/2024 1:28 PM EDT - 12/31/2024 11:59 PM EDT Hospital Encounter Radiation [address] [address] Discharge Disposition: Home or Self Care 12/22/2024 Telephone Radiation Oncology [address] [phone] Alfredo Todd MD from Last 3 Months Social History Tobacco Use Types Packs/Day Years Used Date Smoking Tobacco: Never Assessed Sex and Gender Information Value Date Recorded Sex Assigned at Male 12/08/2024 2:24 PM EDT Legal Sex Male 12:03 PM EDT Gender Identity Male 12/08/2024 2:24 PM EDT Sexual Orientation Not on file Plan of Treatment Upcoming Encounters Date Type Department Care Team (Late st Contact Info) Description 03/23/2025 2:00 PM EST Appointment Radiation Oncology - [place] [address] [place] [address] Roe Flood PA [address] [place] [address] Health Maintenance Due Date Last Done Comments Colorectal Cancer Screening: Colonoscopy 1959 COVID-19 Vaccine (#1) 1964 Pneumococcal Vaccine: 50+ Years (1 of 2 - PCV) 1978 Zoster Vaccines (1 of 2) 1978 RSV Immunization Adult Patients (1 - Risk 50-74 years 1-dose series) 2009 Depression Screening 04/02/2024 Abdominal Aortic Aneurysm (AAA) Screen 11/18/2024 Falls Risk Assessment 11/18/2024 Medicare Annual Wellness Visit 11/18/2024 Social Influencers of Health Screening 11/18/2024 Influenza Vaccine (#1) 2024 , 03/03/2022 Cholesterol Screening (Lipid Panel) 03/08/2028 03/08/2023 DTaP,Tdap,and Td Vaccines (2 - Td or Tdap) 10/08/2028 10/08/2018 Hepatitis C Screening Completed 03/08/2023 HIB Vaccines Aged Out No longer eligi [...] to complete this topic RSV Immunization Patients Under 20 months Aged Out No longer eligible b ased on patient's age to complete this topic Varicella Vaccines Aged Out No longer eligible based on patient's age to complete this topic Procedures Procedure Name Priority Date/Time Associated Diagnosis Comments RAD ONC MSQ TREATMENT SUMMARY Routine 01/26/2025 10:45 AM EDT RAD ONC MSQ TREATMENT SUMMARY Routine 01/23/2025 1:43 PM EDT RAD ONC MSQ TREATMENT SUMMARY Routine 01/21/2025 1:52 PM EDT RAD ONC MSQ TREATMENT SUMMARY Routine 01/19/2025 1:57 PM EDT RAD ONC MSQ TREATMENT SUMMARY Routine 01/16/2025 2:39 PM EDT from Last 3 Months Results * Rad Onc Msq Treatment Summary (01/26/2025 10:45 AM EDT) Treatment Site Prostate PTV MO SAIQ RADIATION ONCOLOGY Course Number 1 MOSAIQ RADIATION ONCOLOGY Prescribed Fractional Dose 725 cGray MOSAIQ RADIATION ONCOLOGY Prescribed Total Dose 3,625 cGray MOSAIQ RADIATION ONCOLOGY Actual Fractions Delivered 5 MOSAIQ RADIATION ONCOLOGY Actual Session Delivered Dose 725 cGray MOSAIQ RADIATION ONCOLOGY Actual Total Dose 3,625 cGray MOSAIQ RADIATION ONCOLOGY Prescribed Technique Stereotactic MOSAIQ RADIATION ONCOLOGY Elapsed Days 10 MOSAIQ RADIATION ONCOLOGY Start Date 01/16/2025 MOSAIQ RADIATION ONCOLOGY Last Date 01/26/2025 MOSAIQ RADIATION ONCOLOGY Prescribed Number of Fractions 5 MOSAIQ RADIATION ONCOLOGY 01/26/2025 10:4 5 AM EDT us Physician Radiation Oncology RADIATION ONCOLO GY ORDERABLES Final Result MOSAIQ RADIATION ONCOLOGY * Rad Onc Msq Treatment Summary (01/23/2025 1:43 PM EDT) Treatment Site Prostate PTV MO SAIQ RADIATION ONCOLOGY Course Number 1 MOSAIQ RADIATION ONCOLOGY Prescribed Fractional Dose 725 cGray MOSAIQ RADIATION ONCOLOGY Prescribed Total Dose 3,625 cGray MOSAIQ RADIATION ONCOLOGY Actual Fractions Delivered 4 MOSAIQ RADIATION ONCOLOGY Actual Session Delivered Dose 725 cGray MOSAIQ RADIATION ONCOLOGY Actual Total Dose 2,900 cGray MOSAIQ RADIATION ONCOLOGY Prescribed Technique Stereotactic MOSAIQ RADIATION ONCOLOGY Elapsed Days 7 MOSAIQ RADIATION ONCOLOGY Start Date 01/16/2025 MOSAIQ RADIATION ONCOLOGY Last Date 01/23/2025 MOSAIQ RADIATION ONCOLOGY Prescribed Number of Fractions 5 MOSAIQ RADIATION ONCOLOGY 01/23/2025 1:43 PM EDT Physician Radiation Oncology RADIATION ONCOLO GY ORDERABLES Final Result Performing Organization Address City/[facility] Co de Phone Number MOSAIQ RADIATION ONCOLOGY * Rad Onc Msq Treatment Summary (01/21/2025 1:52 PM EDT) Treatment Site Prostate PTV MO SAIQ RADIATION ONCOLOGY Course Number 1 MOSAIQ RADIATION ONCOLOGY Prescribed Fractional Dose 725 cGray MOSAIQ RADIATION ONCOLOGY Prescribed Total Dose 3,625 cGray MOSAIQ RADIATION ONCOLOGY Actual Fractions Delivered 3 MOSAIQ RADIATION ONCOLOGY Actual Session Delivered Dose 725 cGray MOSAIQ RADIATION ONCOLOGY Actual Total Dose 2,175 cGray MOSAIQ RADIATION ONCOLOGY Prescribed Technique Stereotactic MOSAIQ RADIATION ONCOLOGY Elapsed Days 5 MOSAIQ RADIATION ONCOLOGY Start Date 01/16/2025 MOSAIQ RADIATION ONCOLOGY Last Date 01/21/2025 MOSAIQ RADIATION ONCOLOGY Prescribed Number of Fractions 5 MOSAIQ RADIATION ONCOLOGY 01/21/2025 1:52 PM EDT Physician Radiation Oncology RADIATION ONCRUDY GY ORDERABLES Final Result MOSAIQ RADIATION ONCOLOGY * Rad Onc Msq Treatment Summary (01/19/2025 1:57 PM EDT) Treatment Site Prostate PTV MO SAIQ RADIATION ONCOLOGY Course Number 1 MOSAIQ RADIATION ONCOLOGY Prescribed Fractional Dose 725 cGray MOSAIQ RADIATION ONCOLOGY Prescribed Total Dose 3,625 cGray MOSAIQ RADIATION ONCOLOGY Actual Fractions Delivered 2 MOSAIQ RADIATION ONCOLOGY Actual Session Delivered Dose 725 cGray MOSAIQ RADIATION ONCOLOGY Actual Total Dose 1,450 cGray MOSAIQ RADIATION ONCOLOGY Prescribed Technique Stereotactic MOSAIQ RADIATION ONCOLOGY Elapsed Days 3 MOSAIQ RADIATION ONCOLOGY Start Date 01/16/2025 MOSAIQ RADIATION ONCOLOGY Last Date 01/19/2025 MOSAIQ RADIATION ONCOLOGY Prescribed Number of Fractions 5 MOSAIQ RADIATION ONCOLOGY 01/19/2025 1:57 PM EDT Physician Radiation Oncology RADIATION ONCOLO GY ORDERABLES Final Result MOSAIQ RADIATION ONCOLOGY * Rad Onc Msq Treatment Summary (01/16/2025 2:39 PM EDT) Treatment Site Prostate PTV MO SAIQ RADIATION ONCOLOGY Course Number 1 MOSAIQ RADIATION ONCOLOGY Prescribed Fractional Dose 725 cGray MOSAIQ RADIATION ONCOLOGY Prescribed Total Dose 3,625 cGray MOSAIQ RADIATION ONCOLOGY Actual Fractions Delivered 1 MOSAIQ RADIATION ONCOLOGY Actual Session Delivered Dose 725 cGray MOSAIQ RADIATION ONCOLOGY Actual Total Dose 725 cGray MOSAIQ RADIATION ONCOLOGY Prescribed Technique Stereotactic MOSAIQ RADIATION ONCOLOGY Elapsed Days 0 MOSAIQ RADIATION ONCOLOGY Start Date 01/16/2025 MOSAIQ RADIATION ONCOLOGY Last Date 01/16/2025 MOSAIQ RADIATION ONCOLOGY Prescribed Number of Fractions 5 MOSAIQ RADIATION ONCOLOGY 01/16/2025 2:39 PM EDT Physician Radiation Oncology RADIATION ONCOLO GY ORDERABLES Final Result MOSAIQ RADIATION ONCOLOGY from Last [address] [facility] MEDICARE Care Teams Automatic Typewriter Inspector Relationship Specialty Start Date End Date Gasper Hensley MD [address] [place] [address], [address] [place] [address] PCP - General Internal Medicine 12/19/24
--- OUTSIDE RECORDS SUMMARY | 2025-03-17 18:18 | XMS_ITS | Clinical Summary ---
Author Organization [facility] Address [address] [address] Phone Care Team Providers Care Artist Mannequin Coloring Name Role Phone Gasper Hensley MD Primary Care Provider [phone] Allergies No known active allergies Medications tadalafiL [...] 2023 he was relying on acupuncture and Irish herbs. In February 2024, PSA 5.[address] Kahlil Barajas Assessment & Plan (08/05/2024 1:22 PM EDT): Biopsy is scheduled later this month. Other male erectile dysfunction 03/08/2023 Overview (11/06/2023): Rx'd mundos Wants to try viagra [girlfriend in [place]...] Elevated LDL cholesterol level 08/30/2021 Overview (03/03/2022): [...] Encounters Date Type Department Care Team Description 02/02/2025 Telephone [place] [facility] [address] [place] [address] Alla Snyder LPN Results from Last 3 Months Immunizations Immunization Administration [...] Years Used Date Smoking Tobacco: Former Cigarettes 1 1977 Smokeless Tobacco: Never Tobacco Cessation:Counseling Given: [...] high school, GED, job training, learning the Green[place]ic language, technical skills, or developing parenting skills)? [...] times have you moved in the past 12 sun ths? Two or more times 03/08/2023 Paying for [...] Health Maintenance Due Date Last Done Comments SMOKING Hx and SMOKELESS TOBACCO SCREENING 1972 PNEUMOCOCCAL VACCINES (50+ years) (1 of 2 - PCV) 1978 ZOSTER VACCINES (1 of 2) 1978 COLOGUARD 2004 FIT TEST 2004 FOBT 2004 SIGMOIDOSCOPY 2004 VIRTUAL COLONOSCOPY 2004 DEPRESSION SCREENING 03/08/2024 03/08/2023 ABDOMINAL AORTIC ANEURYSM (AAA) SCREENING 2024 INFLUENZA VACCINE (#1) 2024 03/08/2023, 2021 COVID-19 VACCINE ( season) 2024 11/30/2020, 06/09/2020, 05/19/2020 SCREENING FOR DIABETES 03/08/2026 03/08/2023, 2022 LIPID [...] Procedure Name Priority Date/Time Associated Diagnosis Comments LIPID PANEL Routine 03/08/2023 9:46 AM EST Annual physical exam HEPATITIS C ANTIBODY, QUALITATIVE Routine 03/08/2023 9:46 AM EST Annual physical exam Need for hepatitis C screening test HM COLONOSCOPY FOR RESULT ENTRY ONLY Routine 01/29/2019 from Last 3 Months or Most Recently Relevant to Health Maintenance Results * Hepatitis C antibody, qualitative (03/08/2023 9:46 AM EST) HCV NON-REACTIV E NON-REACTI VE [facility] Blood 03/08/2023 9:46 AM EST 03/08/2023 9:57 AM EST us Gasper Hensley MD LAB BLOOD BKR ORDERABLES Final Result [address] [address] * Lipid panel (03/08/2023 9:46 AM EST) HDL 45 mg/dL [facility] Comment: Interpretation <40 mg/dL: Low HDL cholesterol (major risk factor for CHD) Greater than or equal to 60 mg/dL: High HDL cholesterol ( negative risk factor for CHD) HDL - cholesterol is affected by a number of factors, e.g. smoking, excerise, hormones, sex and age. CHOLESTEROL 192 0 - 240 mg/dL [facility] TRIGLYCERIDES 92 30 - 160 mg/dL [facility] LDL 129 50 - 129 mg/dL [facility] Comment: LDL levels in terms of risk for coronary heart disease: <100 mg/dL: Optimal 100-129 mg/dL: Near or above optimal 130-159 mg/dL: Borderline high 160-189 mg/dL: High >190 mg/dL: Very High CARDIAC RISK RATIO 4.3 3.4 - 5.0 C [facility] Blood 03/08/2023 9:46 AM EST 03/08/2023 9:57 AM EST us Gasper Hensley MD LAB BLOOD BKR ORDERABLES Final Result [facility] [address] [place] [address] * COLONOSCOPY FOR RESULT ENTRY ONLY (01/29/2019) us Historical Provider HEALTH MAINTENANCE Edited Result - Final from Last 3 Months or Most Recently Relevant to Health Maintenance Insurance [place] [id number] MEDICARE PART A & B MEDICARE PART A & B MEDICARE PART A & B MEDICARE PART A & B MEDICARE PART A & B [facility] INS[facility] MEDICARE PART A & B Care Teams Artist Mannequin Coloring Relationship Specialty Start Date End Date Gasper Hensley MD [address] [place] [address], [address] [place] [address] [email or web address] PCP - General Internal Medicine 09/06/18 Additional Source Comments The information contained in this document represents components of the legal health record. It is not the complete legal health record.[facility]
== END 2025-03-17 14:54 | disposition home or self-care (01) ==
LOC: HO.HUSH 14:02
PROVIDERS: Visit Provider Urology
DX: C61 Malignant neoplasm of prostate (principal); Z19.1 Hormone sensitive malignancy status
CPT/HCPCS: 99213; G2211

== ENCOUNTER → 2025-03-17 14:02 | Outpatient (BNVA) | payer MEDICARE, SELFPAY | PROVIDERS: Visit Provider Urology | DX: C61 Malignant neoplasm of prostate (principal); Z19.1 Hormone sensitive malignancy status; Z98.890 Other specified postprocedural states | CPT/HCPCS: 99212 ==